=== PATIENT | male | born 1975 | race Hispanic/Latino ===

== ENCOUNTER 2019-02-19 02:04 | Emergency (ER) | payer MEDICARE ==
[~2019-02-19] VITALS: Ht 167.6 cm; Wt 100.0 kg
[~2019-02-19 02:04] MED LIST: Levaquin PO; ROBITUSSI8 OR; TESSALON PER100 MG PO; VENTOLIN HFA IN; ZPAK OR
[2019-02-19] MEDS ORDERED: FUROSEMIDE20 MG PO (02:18)
[2019-02-19] MEDS ORDERED: DIGOXIN0.125 MG PO (02:18)
[2019-02-19] MEDS ORDERED: CARVEDILOL25 MG PO (02:19)
[2019-02-19] MEDS ORDERED: PRAVASTATIN40 MG PO (02:19)
[2019-02-19] MEDS ORDERED: BL ASPIRIN325 MG PO (02:20)
[2019-02-19] MEDS ORDERED: ALDACTONE25 MG PO (02:21)
[2019-02-19 02:47] LABS: HEMATOCRIT 45.7 % (39.0-50.0); HEMOGLOBIN 15.4 g/dl (14.0-18.0); IMMATURE GRANULOCYTES 0.3 % (0.0-5.0); MEAN CORPUSCULAR HGB 28.3 pG CALC (26.0-32.0); MEAN CORPUSCULAR HGB CONC 33.7 g/L CALC (32.0-36.0); NEUT# 8.89 thou/uL (1.82-7.42); RED BLOOD COUNT 5.44 mill/uL (4.70-6.10); RED CELL DISTRI WIDTH 12.6 % (11.5-15.5)
[2019-02-19 03:03] LABS: ALBUMIN 4.1 g/dL (3.2-5.0); ALKALINE PHOSPHATASE 147 u/l (38-126); ANION GAP 17 (6-22 (CALC)); BILIRUBIN, TOTAL 0.6 mg/dL (0.0-1.4); BUN 12 mg/dL (9-20); BUN/CREATININE RATIO 19 (12-20 (CALC)); CARBON DIOXIDE 28 mmol/l (22-30); CHLORIDE 95 mmol/l (95-108); CREATININE 0.7 mg/dL (0.7-1.3); GFR > 60 ML/MIN (>=60 (CALC)); GFR FOR AFR.AMER. > 60 ML/MIN (>=60 (CALC)); POTASSIUM 4.2 mmol/l (3.5-5.1); SGOT/AST 31 u/l (17-59); SODIUM 135 mmol/l (137-146); TOTAL PROTEIN 8.1 g/dL (6.3-8.2)
[2019-02-19] MEDS ORDERED: IBUPROFEN600 MG PO (05:02)
[2019-02-19] MEDS ORDERED: AMOXICILLIN500 MG PO (05:02)
[2019-02-19 05:10] VITALS: BP 134/76
== END 2019-02-19 05:10 | disposition home or self-care (01) ==
LOC: ED 02:04
PROVIDERS: Emergency Medicine
DX: K05.10 Chronic gingivitis, plaque induced (principal); I50.9 Heart failure, unspecified; I48.91 Unspecified atrial fibrillation; Z95.810 Presence of automatic (implantable) cardiac defibrillator

== ENCOUNTER 2019-05-07 09:47 | Emergency (ER) | payer MEDICARE ==
[~2019-05-07] VITALS: Ht 167.6 cm; Wt 93.0 kg
[~2019-05-07 09:47] MED LIST changes: +ALDACTONE25 MG PO; +AMOXICILLIN500 MG PO; +BL ASPIRIN325 MG PO; +CARVEDILOL25 MG PO; +DIGOXIN0.125 MG PO; +FUROSEMIDE20 MG PO; +IBUPROFEN600 MG PO; +PRAVASTATIN40 MG PO
[2019-05-07 10:38] LABS: IMMATURE GRANULOCYTES 0.3 % (0.0-5.0); MEAN CELL VOLUME 84.8 fL CALC (80.0-100.0); MEAN CORPUSCULAR HGB 28.9 pG CALC (26.0-32.0); NEUT# 4.89 thou/uL (1.82-7.42); RED BLOOD COUNT 4.4 mill/uL (4.70-6.10); RED CELL DISTRI WIDTH 12.7 % (11.5-15.5)
[2019-05-07 10:42] LABS: HEMATOCRIT 37.3 % (39.0-50.0); HEMOGLOBIN 12.7 g/dl (14.0-18.0)
[2019-05-07 10:49] LABS: ALKALINE PHOSPHATASE 112 u/l (38-126); ANION GAP 14 (6-22 (CALC)); BILIRUBIN, TOTAL 0.6 mg/dL (0.0-1.4); BUN 19 mg/dL (9-20); BUN/CREATININE RATIO 26 (12-20 (CALC)); CARBON DIOXIDE 30 mmol/l (22-30); CHLORIDE 94 mmol/l (95-108); CPK 52 u/l (52-200); CREATININE 0.7 mg/dL (0.7-1.3); GFR > 60 ML/MIN (>=60 (CALC)); GFR FOR AFR.AMER. > 60 ML/MIN (>=60 (CALC)); LIPASE 76 u/l (23-300); POTASSIUM 4.3 mmol/l (3.5-5.1); SGOT/AST 24 u/l (17-59); SODIUM 134 mmol/l (137-146); TOTAL PROTEIN 7.4 g/dL (6.3-8.2)
[2019-05-07 11:02] LABS: URINE BILIRUBIN - DIPSTICK NEGATIVE (NEGATIVE); URINE BLOOD DIPSTICK NEGATIVE (NEGATIVE); URINE COLOR YELLOW; URINE GLUCOSE - DIPSTICK >=1000 mg/dL (NEGATIVE); URINE KETONE NEGATIVE (NEGATIVE); URINE LEUK ESTERASE NEGATIVE (NEGATIVE); URINE NITRITE - DIPSTICK NEGATIVE (Negative); URINE PROTEIN - DIPSTICK NEGATIVE (NEG-TRACE); URINE UROBILINOGEN - DIPSTICK 0.2 E.U./dL (0.2)
[2019-05-07 11:20] LABS: TSH, 3RD GENERATION 2.03 uIU/mL (0.47 - 4.68)
[2019-05-07 12:57] VITALS: BP 113/64
== END 2019-05-07 12:57 | disposition home or self-care (01) ==
LOC: ED 09:47
PROVIDERS: Family Medicine
DX: E11.65 Type 2 diabetes mellitus with hyperglycemia (principal); I50.9 Heart failure, unspecified; I48.91 Unspecified atrial fibrillation; Z95.810 Presence of automatic (implantable) cardiac defibrillator